=== PATIENT | male | born 2000 | race African-American/Black ===

== ENCOUNTER 2025-06-08 22:16 | Emergency (ER) | payer OTHER ==
[~2025-06-08] VITALS: Ht 177.8 cm; Wt 83.9 kg
[2025-06-08 23:52] VITALS: BP 129/76; TEMP 98.2; O2SAT 97
[2025-06-09] MEDS ORDERED: IBUPROFEN 400 MG TABLET ONE (00:11)
[2025-06-09] MEDS: IBUPROFEN 400 MG TABLET PO ONE (00:13)
[2025-06-09] MEDS ORDERED: IBUP-1957 PO (00:17)
== END 2025-06-09 01:02 | disposition home or self-care (01) ==
LOC: ER 22:23
DX: S13.4XXA Sprain of ligaments of cervical spine, initial encounter (principal); S00.91XA Abrasion of unspecified part of head, initial encounter; Z59.00 Homelessness unspecified; Z79.1 Long term (current) use of non-steroidal anti-inflammatories (NSAID); Z88.5 Allergy status to narcotic agent; Z60.2 Problems related to living alone; Y08.89XA Assault by other specified means, initial encounter; Y93.89 Activity, other specified; Y92.89 Other specified places as the place of occurrence of the external cause; Y99.8 Other external cause status
CPT/HCPCS: 99284; 72125; 70486; A6403